=== PATIENT | female | born 1985 | race Caucasian/White ===

== ENCOUNTER 2021-10-23 11:26 | Emergency (ER) | payer SELFPAY ==
[2021-10-23 11:28] VITALS: BP 115/87; PULSE 68; RESP 15; TEMP 36.2; O2SAT 99; BMI 24.5
--- NOTE | 2021-10-23 11:45 | EDS_ITS ---
HPI History of Present Illness Chief Complaint: General Illness Detail of Chief Complaint: Lightheaded and may be Informant: patient Onset/Context/Timing Onset: Days Context: Gradual Onset Timing: Intermittent Current Severity: Mild Maximum Severity: Mild Narrative Narrative: 35-year-old female history of anxiety. Says lacerations and lightheadedness and dizziness. Said her breasts are sore. She had nausea and vomiting once yesterday. She said she is very emotional and cries easily. She is concerned she may be . States in the past when she was she had negative urine test at the beginning of the . She is G1, P1 Ab0. She is 11-year-old son. Denies any fever. No dysuria. Prior similar symptoms: No Recent Illness/Hospitalization: No PFSH PFSH Home Medications buspirone 10 mg tablet 10 mg PO DAILY 10/23/21 [History Last Taken Unknown] escitalopram oxalate 10 mg tablet (Lexapro) 10 mg PO DAILY 10/23/21 [History Last Taken Unknown] Allergy/AdvReac Type Severity Reaction Status Date / Time sweet potato Allergy Hives Verified 10/23/21 11:27 walnut Allergy Hives Verified 10/23/21 11:27 Social History Smoking Status: Never smoker ROS ROS ED ROS Narrative Nausea vomiting x1. Lightheadedness. Review of Systems ROS Unobtainable: Denies due to encephalopathy Constitutional Constitutional ED: Denies chills or fever(s) Eyes Eyes: Denies blurry vision ENT ENT ED: Denies ear pain Cardiovascular Cardiovascular: Denies chest pain Respiratory/Chest Respiratory/Chest: Denies cough Gastrointestinal Gastrointestinal: Denies abdominal pain Genitourinary Genitourinary ED: Denies dysuria Musculoskeletal Musculoskeletal: Denies arthralgias Integumentary Denies abscess Neurologic Neurologic: Reports headache(s) Psychiatric Psychiatric: Denies anxiety Endocrine Endocrinology: Denies cold intolerance Hematologic/Lymphatic Hematologic/Lymphatic: Reports none; Denies easy bruising or lymphadenopathy Allergic/Immunologic Allergic/Immunologic ED: Denies mouth swelling EXAM Physical Exam Narrative Exam Narrative: 35-year-old female vital signs stable afebrile. Pulse ox 90% on room air no signs hypoxia. H EENT exam unremarkable. Neck nontender no lymphadenopathy. Lungs clear to auscultation bilaterally. Heart regular rhythm rate about 70 no murmur. Chest were nontender. Abdomen soft nontender. Moving all 4 extremities. Calves are nontender without edema or cords. Back nontender. Neurologically she is awake alert with no focal motor deficits. Exam benign. Const Vital Signs: 10/23/21 11:28 10/23/21 11:36 10/23/21 11:49 Temperature 97.2 F L Temperature Source Temporal Pulse Rate 68 Pulse Rate [Lying] 88 Pulse Rate [Sitting (for 1 minute prior to obtaining)] 88 Pulse Rate [Standing (for 1 minute prior to obtaining)] 101 H Respiratory Rate 15 Respiratory Effort Normal Blood Pressure 115/87 H Blood Pressure [Lying] 114/75 Blood Pressure [Sitting (for 1 minute prior to obtaining)] 117/81 H Blood Pressure [Standing (for 1 minute prior to obtaining)] 122/104 H Blood Pressure Mean 96 Blood Pressure Mean [Lying] 88 Blood Pressure Mean [Sitting (for 1 minute prior to obtaining)] 93 Blood Pressure Mean [Standing (for 1 minute prior to obtaining)] 110 Pulse Ox 99 Oxygen Delivery Method Room Air Positive well nourished and well developed; Negative for obese, cachectic, contractures or unkempt General Appearance ED: well developed and NAD; Negative for unkempt, cachectic, contractures, cyanotic or diaphoretic Nutritional Appearance: Negative for cachectic or obese HEENT Reports moist mucous membranes; Denies dry mucous membranes Negative for trauma or tenderness Mouth ED: No dry mucous membranes Mouth: No dry mucous membranes Eyes PERRL and EOMs intact bilaterally General Eye ED: Negative for pale conjunctiva or scleral icterus Neck no lymphadenopathy, supple and no JVD General: Negative for tenderness Lymph Lymphatic: Negative for other Chest Wall inspection of chest normal and palpation of chest normal Chest: Negative for other Resp normal respiratory effort and clear to auscultation bilaterally Effort and Inspection: Negative for retractions Auscultation: Negative for rales, rhonchi or wheezes Cardio regular rate, regular rhythm, S1 normal heart sound, S2 normal heart sound and no murmurs Palpation: Negative for palpable S3 Rate: Negative for bradycardia Rhythm: Negative for abnormal rhythm GI normal to inspection, nondistended, normoactive bowel sounds, non-tender, non- distended and no masses Inspection: Negative for abdominal distention Auscultation: normoactive bowel sounds Palpation: soft; Negative for tender or guarding Back/Spine no CVA tenderness General Back: Negative for CVA tenderness Cervical Spine: Negative for cervical spine tenderness Thoracic Spine / Upper Back: Negative for thoracic spinal tenderness Lumbar Spine / Lower Back: Negative for lumbar spinal tenderness Extremity normal to inspection General Extremety ED: Negative for edema or tenderness General Extremity: Negative for edema Neuro oriented x3 and CN's II-XII intact bilaterally Sensorium / Orientation: alert; Negative for orientation impaired, lethargic or stuporous Motor Exam: strength 5/5 throughout Psych mental status grossly normal Appearance: Negative for unkempt Attitude: No agitated Mood & Affect: anxious; Negative for depressed or tearful Skin no rashes or lesions noted General Skin Exam: elasticity normal Lesions: No lesion noted Rashes: No rashes noted Trauma: Negative for abrasion Wounds: Negative for wounds noted MDM MDM MDM Narrative Medical decision making narrative: 35-year-old concerned she may be and also complained of lightheadedness. Normal exam. CBC and chemistry serum test to be obtained. Otherwise her exam is benign. Bar exam patient is doing well at 12:38 PM. She will be discharged home. We went over all of her test results. Lab Data Attestation: I reviewed the patient's lab results. Lab results narrative: CBC normal. White count of 5 H&H 13 and 37. Electrolytes unremarkable gap of 5. Normal BUN and creatinine. Glucose 92. Serum test negative. Labs: Laboratory Results - last 24 hr 10/23/21 10/23/21 10/23/21 11:50 11:50 11:50 WBC 5.3 RBC 4.15 L Hgb 13.1 Hct 37.9 MCV 91.3 MCH 31.6 MCHC 34.6 RDW Std Deviation 40.8 RDW Coeff of Teddy 12.1 Plt Count 357 MPV 8.8 Sodium 139 Potassium 3.6 Chloride 109 H Carbon Dioxide 25.0 Anion Gap 5 BUN 13 Creatinine 0.61 Estim Creat Clear Calc 103.75 Est GFR (MDRD) Af Amer 144 Est GFR (MDRD) Non-Af 119 BUN/Creatinine Ratio 21.3 H Glucose 92 Calcium 8.8 Serum , Qual NEGATIVE Discharge Plan Triage Chief Complaint: General Illness ED Provider: Nithin Portillo Dx/Rx/DC Orders Clinical Impression: Light-headed Instructions: ED Dizziness, Uncertain Cause Prescriptions: No Action buspirone [BuSpar] 10 mg Tablet 10 mg PO DAILY escitalopram oxalate [Lexapro] 10 mg Tablet 10 mg PO DAILY Primary Care Provider: Care Physician,No Primary Referrals: Raudel Spann MD [Med Staff - [employer]] - 3-5 Days if not improving Activity Restrictions/Additional Instructions: Plenty of fluids and rest. Your tests including blood counts, electrolytes, kidney function and test were all negative. Follow-up with your doctor if not improving. Disposition Disposition: Home, Self Care
[2021-10-23 11:49] VITALS: BP 114/75; BP 117/81; BP 122/104; PULSE 101; PULSE 88
[2021-10-23 12:11] LABS: Hematocrit 37.9 % (37-47); Hemoglobin 13.1 g/dL (12.0-15.0); Mean Corp Hgb Conc 34.6 g/dL (32-36); Mean Corpuscular Hgb 31.6 pg (27.0-32.0); Mean Corpuscular Volume 91.3 fL (81-99); Mean Platelet Vol. 8.8 fl (6.2-12.0); Platelet Count 357 K/mm3 (150-450); RBC Distribution Width CV 12.1 % (11.6-14.6); RBC Distribution Width SD 40.8 fl (35.1-43.9); Red Blood Count 4.15 M/mm3 (4.2-5.4); White Blood Count 5.3 K/mm3 (4.4-11.0)
[2021-10-23 12:20] LABS: Anion Gap 5 (5-15); BUN 13 mg/dL (7-18); BUN/Creat Ratio 21.3 RATIO (10-20); Calcium,Total 8.8 mg/dL (8.5-10.1); Chloride 109 mmol/L (98-107); Creatinine, Serum 0.61 mg/dL (0.55-1.02); EST Glomerular Filtration Rate 119 mL/min (>60); Est Glom Filt Rate - Afr Amer 144 mL/min (>60); Estimated Creatinine Clearance 103.75 ml/min; Glucose 92 mg/dL (74-106); Potassium 3.6 mmol/L (3.5-5.1); Sodium Level 139 mmol/L (136-145)
[2021-10-23 12:23] LABS: Internal QC Validated? YES +Cl - CLEAR BKGD; Pregnancy, Serum, hCG Quali. NEGATIVE Negative
[2021-10-23 13:09] VITALS: BP 110/78; PULSE 77; RESP 16; O2SAT 95
== END 2021-10-23 13:10 | disposition home or self-care (01) ==
PROVIDERS: Emergency Provider Emergency Medicine; Visit Provider Emergency Medicine
DX: R42 Dizziness and giddiness (principal); F41.9 Anxiety disorder, unspecified
CPT/HCPCS: 80048; 84703; 85027; 99284

== ENCOUNTER 2023-02-06 00:12 | Emergency (ER) | payer SELFPAY ==
[2023-02-06 00:13] VITALS: BP 142/88; PULSE 89; RESP 18; TEMP 36.7; O2SAT 98; BMI 31.8
--- NOTE | 2023-02-06 00:33 | CT_ITS ---
STUDY: CT ABDOMEN AND PELVIS WITHOUT CONTRAST REASON FOR EXAM: Female, 37 years old patient with kidney stone. RADIATION DOSAGE (If Supplied By Facility): CTDIvol = ( 9.39 ) mGy, DLP = ( 457.20 ) mGycm TECHNIQUE: Transaxial images were obtained from the dome of the diaphragm to the symphysis pubis without oral contrast, and without intravenous contrast. Sagittal and coronal images were reconstructed. Individualized dose optimization techniques were used for this CT. COMPARISON: Prior comparison studies are not available for review at this time. FINDINGS: There is heterogeneous groundglass attenuation in both lower lobes, right greater than left. The visualized portions of the heart are within normal limits. There is hepatomegaly with diffuse hepatic enlargement. Liver measures 18.7 cm in greatest dimension. Normal gallbladder and extrahepatic biliary system. Normal spleen. Normal pancreas. Normal bilateral adrenal glands. Normal right kidney. Normal left kidney. Normal visualized stomach. There is no obvious dilated bowel, ascites or pneumoperitoneum. There is abnormal thickening of the wall of the small bowel suggesting infectious or inflammatory enteritis. There is stool and gas-filled colon with scattered diverticula. The appendix is visualized and appears normal. Normal abdominal aorta. Normal inferior vena cava. Normal retroperitoneum. Normal urinary bladder. Normal visualized uterus. There is a small umbilical hernia containing fat. Normal osseous structures. CT/Abdomen/Pelvis without Cont IMPRESSION: Findings suggest infectious or inflammatory enteritis. Electronically Signed: Lety Best MD at 1:40 EST ,
--- NOTE | 2023-02-06 00:33 | EX.ED.DYSGE1 ---
HPI History of Present Illness Chief Complaint: Flank Pain Informant: patient Narrative Narrative: Nontraumatic right flank pain for 5 days of or worsening over 2 days. No radicular symptoms. No nausea or vomiting. States urine frequency, no dysuria. No fevers. Excedrin taken at noon 12 hours ago upon tightly doses of Tylenol 1 hour ago. Last menstrual period within this last month. Denies history of kidney stones. Prior similar symptoms: No PFSH PFSH Home Medications buspirone 10 mg tablet 10 mg PO DAILY 10/23/21 [History Last Taken Unknown] escitalopram oxalate 10 mg tablet (Lexapro) 10 mg PO DAILY 10/23/21 [History Last Taken Unknown] ibuprofen 600 mg tablet 600 mg PO Q6H PRN PRN pain #20 TABLETS 02/06/23 [Rx Last Taken Unknown] Allergy/AdvReac Type Severity Reaction Status Date / Time sweet potato Allergy Hives Verified 02/06/23 00:16 walnut Allergy Hives Verified 02/06/23 00:16 Social History Smoking Status: Never smoker ROS ROS ED Constitutional Constitutional ED: Denies chills, fever(s) or sweats Eyes Eyes: Denies change in vision ENT ENT ED: Denies dysphagia or sore throat Cardiovascular Cardiovascular: Denies chest pain, leg edema, palpitations or racing heartbeat Respiratory/Chest Respiratory/Chest: Denies cough, dyspnea or dyspnea on exertion Gastrointestinal Gastrointestinal: Denies abdominal pain, diarrhea, nausea or vomiting Genitourinary Genitourinary ED: Denies dysuria, hematuria or urinary frequency Musculoskeletal Musculoskeletal: Reports back pain; Denies extremity pain or neck pain Integumentary Denies rash or wounds Neurologic Neurologic: Denies headache(s), paresthesias or weakness EXAM Physical Exam Const Vital Signs: 02/06/23 00:13 Temperature 98.0 F Temperature Source Temporal Pulse Rate 89 Respiratory Rate 18 Blood Pressure 142/88 H Blood Pressure Mean 106 Pulse Ox 98 Positive well nourished and well developed General Appearance ED: well developed and NAD HEENT Reports moist mucous membranes normocephalic and atraumatic Eyes PERRL, EOMs intact bilaterally and conjunctivae normal General Eye ED: Yes normal appearance of both eyes Neck no lymphadenopathy and supple General: Negative for tenderness Chest Wall Chest: Negative for tenderness Resp normal respiratory effort and normal air movement Effort and Inspection: symmetric chest movement; Negative for respiratory distress Cardio regular rate, regular rhythm and no murmurs Peripheral Pulses: pulses 2+ throughout GI normal to inspection, nondistended, normoactive bowel sounds and non-tender Palpation: Negative for guarding or rebound tenderness present Back/Spine no thoracic nor lumbar tenderness Back/Spine Narrative: Right CVA tenderness no rash or ecchymosis. No midline tenderness. Extremity normal to inspection General Extremety ED: Negative for edema or tenderness General Extremity: Negative for edema Neuro oriented x3 and no sensory deficits noted Sensorium / Orientation: awake and alert Skin no rashes or lesions noted and no wounds MDM MDM MDM Narrative Medical decision making narrative: Interventions / MDM: Differential diagnosis: Musculoskeletal pain, flank pain Diagnosis considered but do not suspect: Kidney stones however CT negative. Shingles however no current rash. My EKG interpretation: N/A Imaging independently reviewed and interpreted by myself:CT abdomen pel without contrast: Normal appendix. No kidney stones, abnormal thickening of small bowel as per radiologist. External documents reviewed: N/A Test considered but not ordered:N/A ED course: Patient persistent right flank pain. Pain worse with palpation no current rash. Renal stone protocol initiated. IV Toradol and fluids were ordered. 0135: Pain was more improved. Urine slight hematuria. Kidney function normal white cells and hemoglobin normal. My wet read of CT no obstructive or hydronephrosis of the kidneys. Pending CT read. 0150: Final read from radiologist no kidney stones. Normal appendix. Thickened small bowel. Per radiology suggesting infectious or inflammatory issues. Patient denies family history of Crohn's or ulcerative colitis. I discussed the findings with the patient and also states this was a noncontrast CT. She has no belly pain. She has no bloody stools. She will be referred to GI as an outpatient. In the meantime she will continue Motrin. She will monitor for any rashes for potential shingles. All questions were answered. Re-evaluation: stable Disposition discussed with patient/family/significant other: Patient and significant other Case discussed with consulting clinician: N/A This note was generated with [employer] dictation software. It may contain incorrect words, spelling, and punctuation that were not noted in checking the note before signing. Lab Data Attestation: I reviewed the patient's lab results. Labs: Laboratory Results - last 24 hr 02/06/23 02/06/23 00:18 01:00 WBC 10.1 RBC 3.96 L Hgb 12.2 Hct 35.6 L MCV 89.9 MCH 30.8 MCHC 34.3 RDW Std Deviation 42.8 RDW Coeff of Teddy 12.9 Plt Count 373 MPV 9.0 Immature Gran % (Auto) 0.300 Neut % (Auto) 62.4 Lymph % (Auto) 28.7 [place] % (Auto) 6.7 Eos % (Auto) 1.4 Baso % (Auto) 0.5 Absolute Neuts (auto) 6.3 Absolute Lymphs (auto) 2.89 Nucleated RBC % 0 Sodium 137 Potassium 3.5 Chloride 108 H Carbon Dioxide 27.0 Anion Gap 2 L BUN 15 Creatinine 0.59 Estim Creat Clear Calc 105.26 Est GFR (MDRD) Af Amer 149 Est GFR (MDRD) Non-Af 123 BUN/Creatinine Ratio 25.4 H Glucose 117 H Calcium 8.7 Urine Color Yellow Urine Clarity Clear Urine pH 6.5 Ur Specific Freeman 1.005 Urine Protein Negative Urine Glucose (UA) Normal Urine Ketones Negative Urine Occult Blood 10 H Urine Nitrite Negative Urine Bilirubin Negative Urine Urobilinogen Normal Ur Leukocyte Esterase Negative Urine RBC 0 SEEN Urine WBC 0 SEEN Ur Squamous Epith Cells 0 SEEN Urine Bacteria 0 SEEN Urine Mucus 0 SEEN Urine Test Negative Radiography Diagnostic Testing: Clinical Impression(s) from Imaging Studies Abdomen/Pelvis CT 02/06/23 00:33 IMPRESSION: Findings suggest infectious or inflammatory enteritis. Electronically Signed: Lety Best MD at 1:40 EST Reading Location ID and State: [facility] / [place] , Service support , Discharge Plan Triage Chief Complaint: Flank Pain ED Provider: Carmine Talamantes Dx/Rx/DC Orders Clinical Impression: Lumbar strain, Thickened small bowel, Rt flank pain Instructions: ED Flank Pain, Uncertain Cause Prescriptions: New ibuprofen 600 mg tablet 600 mg PO Q6H PRN PRN (Reason: pain) Qty: 20 0RF No Action buspirone [BuSpar] 10 mg Tablet 10 mg PO DAILY escitalopram oxalate [Lexapro] 10 mg Tablet 10 mg PO DAILY Stand Alone Forms: ED Work / School Excuse Primary Care Provider: Care Physician,No Primary Referrals: Blu Talavera DO [Med Staff - Active Staff] - 1-2 Weeks Sandy Bishop [Non-Staff] - 1 Week if not improving Care Physician,No Primary [Primary Care Provider] - Activity Restrictions/Additional Instructions: CT negative for kidney stones. Thickened small bowel is on CT with a normal appendix. Follow-up with GI for further evaluation if needed. Use ibuprofen as needed. Disposition Disposition: Home, Self Care
[2023-02-06 00:52] LABS: Bacteria 0 SEEN /hpf (None Seen); Mucous, Urine 0 SEEN /hpf (<or=2+); Red Blood Cells-Urine 0 SEEN /hpf (0-5); Squamous Epithelial Cells - UA 0 SEEN /hpf (5-10); White Blood Cells 0 SEEN /hpf (0-5)
[2023-02-06 00:53] LABS: Color, Urine Yellow (Yellow); Glucose, Dipstick Normal (Normal); Ketone-Dipstick Negative (Negative); Leukocyte Esterase-Dipstick Negative /ul (Negative); Nitrite-Dipstick Negative (Negative); Occult Blood-Urine 10 /ul (Negative); Protein-Dipstick Negative (Negative); Specific Gravity, Urine 1.005 (1.002-1.030); Urine Bilirubin Dipstick Negative (Negative); Urine Clarity Clear (Clear); Urine Urobilinogen Normal (Normal); Urine pH 6.5 (5.0 - 8.0)
[2023-02-06] MEDS: 0.9% Normal Saline (1000mL) 1,000 ML 250 ML IV (00:57)
[2023-02-06] MEDS: Ketorolac 15 MG/ML Vial IV (00:58)
[2023-02-06 01:03] LABS: Internal QC Validated? YES +Cl - CLEAR BKGD; Pregnancy, Urine Negative Negative
[2023-02-06 01:10] LABS: Absolute Lymphocyte Count 2.89 X10^3/uL (0.83-4.51); Absolute Neutrophil Count 6.3 X10^3/uL (2.0-7.7); Basophil# 0.05 X10^3/uL; Basophil% 0.5 % (0-1); Eosinophil# 0.14 X10^3/uL; Eosinophils% 1.4 % (0-5); Hematocrit 35.6 % (37-47); Hemoglobin 12.2 g/dL (12.0-15.0); Lymphocyte # 2.89 X10^3/ul (0.83-4.51); Lymphocyte % 28.7 % (19-41); Mean Corp Hgb Conc 34.3 g/dL (32-36); Mean Corpuscular Hgb 30.8 pg (27.0-32.0); Mean Corpuscular Volume 89.9 fL (81-99); Monocyte# 0.67 X10^3/uL; Monocyte% 6.7 % (0-10); NRBC Flagged by Analyzer 0 % (0-5); Neutrophil # 6.29 X10^3/uL (2.7-7.7); Neutrophil % 62.4 % (47-70); Platelet Count 373 K/mm3 (150-450); RBC Distribution Width CV 12.9 % (11.6-14.6); RBC Distribution Width SD 42.8 fl (35.1-43.9); Red Blood Count 3.96 M/mm3 (4.2-5.4); White Blood Count 10.1 K/mm3 (4.4-11.0)
[2023-02-06 01:31] LABS: Anion Gap 2 (5-15); BUN 15 mg/dL (7-18); BUN/Creat Ratio 25.4 RATIO (10-20); Calcium,Total 8.7 mg/dL (8.5-10.1); Chloride 108 mmol/L (98-107); Creatinine, Serum 0.59 mg/dL (0.55-1.02); EST Glomerular Filtration Rate 123 mL/min (>60); Est Glom Filt Rate - Afr Amer 149 mL/min (>60); Estimated Creatinine Clearance 105.26 ml/min; Glucose 117 mg/dL (74-106); Potassium 3.5 mmol/L (3.5-5.1); Sodium Level 137 mmol/L (136-145)
[2023-02-06 02:04] VITALS: BP 147/90; PULSE 77; RESP 18; O2SAT 100
== END 2023-02-06 02:05 | disposition home or self-care (01) ==
PROVIDERS: Emergency Provider Emergency Medicine; Visit Provider Emergency Medicine
DX: S39.012A Strain of muscle, fascia and tendon of lower back, initial encounter (principal); R10.9 Unspecified abdominal pain; K63.89 Other specified diseases of intestine
CPT/HCPCS: 74176; 80048; 81001; 81025; 85025; 96361; 96374; 99283; J7030; A4216

== ENCOUNTER 2024-01-18 15:25 | Emergency (ER) | payer MEDICAID, SELFPAY ==
[2024-01-18 15:27] VITALS: BP 112/63; PULSE 83; RESP 16; TEMP 36.1; O2SAT 99
--- NOTE | 2024-01-18 16:05 | EDS_ITS ---
HPI History of Present Illness HPI Narrative: Patient presents with left ankle injury that occurred today at work. Patient states she slipped on a bottle cap when she fell and inverted her left ankle. Patient complains of pain over the lateral aspect of her left ankle. Patient describes it as throbbing, stabbing, and occasional burning. Patient states it is worse with any weightbearing. Patient denies any paresthesias or weakness. Patient denies any head injury or loss of consciousness. Patient states she is unable to bear weight due to the pain. Patient denies any other injuries. Chief Complaint: Lower Extremity Injury Informant: patient Occured/Mechanism Mechanism/Context: Yes fall and Yes same level fall Onset/Context/Timing Onset: Today Context: Sudden Onset Timing: Continuous Quality of Pain: Burning, Stabbing and Throbbing Location: Left ankle Worsened by: Weightbearing Relieved by: Nothing Associated Symptoms Associated Symptoms: Negative for Parasthesia or Weakness Narrative Tetanus Immunization: Unknown [facility] Medical History (Updated 01/18/24 @ 16:[address] Abdiaziz Mata DO) Depression Anxiety Home Medications ?Medication ?Instructions ?Recorded ?Last Taken ?Type buspirone 10 mg tablet 10 mg PO DAILY 10/23/21 Unknown History escitalopram oxalate 10 mg tablet 10 mg PO DAILY 10/23/21 Unknown History (Lexapro) ibuprofen 600 mg tablet 600 mg PO Q6H PRN PRN pain #20 02/06/23 Unknown Rx TABLETS Allergy/AdvReac Type Severity Reaction Status Date / Time sweet potato Allergy Hives Verified 01/18/24 15:26 walnut Allergy Hives Verified 01/18/24 15:26 Surgical History (Updated 01/18/24 @ 16:[address] Abdiaziz Mata DO) Hx of tympanostomy tubes Social History (Updated 01/18/24 @ 16:[address] Abdiaziz Mata DO) Smoking Status: Never smoker alcohol intake: current alcohol intake frequency: holidays/special occasions only ROS ROS ED Constitutional Constitutional ED: Denies chills or fever(s) Eyes Eyes: Denies blurry vision or change in vision ENT ENT ED: Denies rhinorrhea or sore throat Cardiovascular Cardiovascular: Denies chest pain or palpitations Respiratory/Chest Respiratory/Chest: Denies cough or dyspnea Gastrointestinal Gastrointestinal: Reports nausea; Denies vomiting Genitourinary Genitourinary ED: Denies dysuria or hematuria Musculoskeletal Musculoskeletal: Denies back pain or neck pain Integumentary Denies abscess or rash Neurologic Neurologic: Denies headache(s) or weakness Allergic/Immunologic Allergic/Immunologic ED: Denies mouth swelling or urticaria EXAM Physical Exam Const Vital Signs: 01/18/24 15:27 Temperature 97 F L Temperature Source Temporal Pulse Rate 83 Respiratory Rate 16 Blood Pressure 112/63 Blood Pressure Mean 79 Pulse Ox 99 Oxygen Delivery Method Room Air Positive well nourished and well developed General Appearance ED: well developed and NAD HEENT Reports moist mucous membranes Neck full ROM and supple Extremity normal to inspection Extremity Narrative: There is tenderness over the lateral aspect of the left ankle. There is some mild edema. There is a superficial abrasion over the lateral malleolus. There is no active bleeding noted. Range of motion was limited in all motions of the right ankle secondary to pain. Sensation was intact to light touch in all digits. Capillary refills less than 2 seconds in all digits. Pedal pulses are equal bilateral. There is no tenderness over the fifth metatarsal. There is no tenderness over the proximal fibula. Neuro oriented x3, CN's II-XII intact bilaterally, moves all extremities and no sensory deficits noted Sensorium / Orientation: alert Motor Exam: strength 5/5 throughout Psych mental status grossly normal MDM MDM MDM Narrative Medical decision making narrative: Differential diagnosis includes fracture, sprain, contusion, and abrasion. X- rays of the left ankle will be obtained to assess for fracture. Radiography Diagnostic Testing: Clinical Impression(s) from Imaging Studies Ankle X-Ray 01/18/24 16:15 IMPRESSION: Mild medial malleolus sprain. No acute fracture Electronically Signed: Gato Handley MD at 16:34 EST Reading Location ID and State: [facility] / [place] Tel , Service support , X-rays of the left ankle were obtained. There are 3 views. On my independent interpretation, there is no acute fracture or dislocation. There are some mild soft tissue swelling. Radiologist also interpreted the x-rays and agrees. Treatment and Re-Evaluation Narrative: Patient was given a tetanus booster. Patient was advised of her findings. Patient was given an Aircast. Patient states she has crutches at home. Patient was instructed to use these to help with weightbearing as needed. Patient was instructed to take Tylenol or ibuprofen as needed for pain. Patient was instructed to follow-up with her primary care physician in 5 to 7 days. Patient understood and was agreeable with the plan. All questions were answered. Discharge Plan Triage Chief Complaint: Lower Extremity Injury ED Provider: Abdiaziz Mata Dx/Rx/DC Orders Clinical Impression: Left ankle sprain, Fall Instructions: ED Ankle Sprain (Adult) Prescriptions: No Action buspirone [BuSpar] 10 mg Tablet 10 mg PO DAILY escitalopram oxalate [Lexapro] 10 mg Tablet 10 mg PO DAILY ibuprofen 600 mg tablet 600 mg PO Q6H PRN PRN (Reason: pain) Qty: 20 0RF Stand Alone Forms: Work Status Form Primary Care Provider: Josh Collazo Referrals: Care Physician,No Primary [Non-Staff] - Clinic,NOW [Non-Staff] - 5-7 Days Josh Collazo, [employer] [Primary Care Provider] - 5-7 Days Print Language: Peruvian Disposition Disposition: Home, Self Care
--- NOTE | 2024-01-18 16:15 | RAD_ITS ---
STUDY: X-RAY - LEFT ANKLE REASON FOR EXAM: Female, 38 years old. Injury/Pain TECHNIQUE: 3 view(s) of the ankle. COMPARISON: None. FINDINGS: Normal visualized distal tibia and fibula. Normal medial and lateral malleoli. Normal tibiotalar articulation and ankle mortise. Normal visualized talus and calcaneus. The visualized subtalar, talonavicular, calcaneocuboid and tarsal articulations are normal. Mild soft tissue swelling overlying the medial malleolus. RAD/Ankle min 3 Views IMPRESSION: Mild medial malleolus sprain. No acute fracture Electronically Signed: Gato Handley MD at 16:34 EST ,
== END 2024-01-18 17:45 | disposition home or self-care (01) ==
PROVIDERS: Emergency Provider Emergency Medicine; PCP Nurse Practitioner Family; Visit Provider Emergency Medicine
DX: S93.402A Sprain of unspecified ligament of left ankle, initial encounter (principal); W01.0XXA Fall on same level from slipping, tripping and stumbling without subsequent striking against object, initial encounter; Y92.89 Other specified places as the place of occurrence of the external cause; F41.9 Anxiety disorder, unspecified; F32.A Depression, unspecified; Z79.899 Other long term (current) drug therapy; Z23 Encounter for immunization
CPT/HCPCS: 73610; 90715; 99283

== ENCOUNTER → 2025-02-01 | Outpatient (CLI) | payer MEDICAID, SELFPAY ==
[2025-02-01 16:56] LABS: Hematocrit 39.4 % (37-47); Hemoglobin 12.9 g/dL (12.0-15.0); Immature Granulocytes Count 0.020 X10^3/uL (0.0-0.0); Mean Corp Hgb Conc 32.7 g/dL (32-36); Mean Corpuscular Volume 90.8 fL (81-99); Mean Platelet Vol. 9.7 fl (6.2-12.0); NRBC Flagged by Analyzer 0 % (0-5); Platelet Count 471 K/mm3 (150-450); RBC Distribution Width CV 12.4 % (11.6-14.6); RBC Distribution Width SD 40.8 fl (35.1-43.9); Red Blood Count 4.34 M/mm3 (4.2-5.4); White Blood Count 7.5 K/mm3 (4.4-11.0)
[2025-02-01 17:29] LABS: Cholesterol 196 mg/dL (<=200); Low Density Lipoprotein Calc. 125 mg/dL; Triglycerides 159 mg/dL; Very Low Density Lipoprotein 32 mg/dL (5-40); cholesterol:hdl ratio screen 4.58
[2025-02-01 17:52] LABS: AST(SGOT) 14 U/L (<=31); Alanine Aminotransfer ALT/SGPT 10 U/L (<=34); Albumin, Serum 4.3 g/dL (3.5-5.0); Alkaline Phosphatase 77 U/L (35-104); Anion Gap 12 (5-15); BUN 10 mg/dL (4-19); BUN/Creat Ratio 19.1 RATIO (10-20); Calcium,Total 9.4 mg/dL (7.6-11.0); Carbon Dioxide 23.9 mmol/L (21.0-32.0); Chloride 101 mmol/L (98-108); Ferritin 38 ng/mL (22-378); Free T3 3.3 pg/mL (2.18-3.98); Globulin 3.1 g/dL (2.2-4.2); Glucose 89 mg/dL (70-99); Iron 187 ug/dL (50-170); Iron Binding Capacity,Total 337 ug/dL (250-450); Iron Binding Capacity,Unsat 150 ug/dL (228-428); Magnesium 2.2 mg/dL (1.5-2.2); Potassium 4.2 mmol/L (3.3-5.1); Vitamin B12 293 pg/mL (180-914); Vitamin D,25 Hydroxy 29.5 ng/mL (30-100)
[2025-02-01 17:59] LABS: FOLATES,SERUM (FOLIC ACID) 5.76 ng/mL (4.60-34.80)
== END | disposition home or self-care (01) ==
LOC: VSLAB 13:37
PROVIDERS: PCP Nurse Practitioner Family; Referring Provider Nurse Practitioner; Visit Provider Nurse Practitioner
DX: F41.1 Generalized anxiety disorder (principal)
CPT/HCPCS: 36415; 80053; 80061; 82306; 82607; 82728; 82746; 83540; 83550; 83735; 84439; 84443; 84481; 85025